=== PATIENT | female | born 1955 | race Two or more races ===

== ENCOUNTER → 2017-04-15 09:53 | Outpatient (CLI) | payer OTHER ==
[~2017-04-15 09:53] MED LIST: Neurin-Sl Tablet Sl SL; Neurontin PO; PANTOPRAZOLE SO40 MG PO; VITAMIN B COMPL1 CAP PO; ZANTAC150 MG PO; ZEBETA5 MG; ZEBETA5 MG PO; ZOLPIDEM TARTRAT5 MG PO
== END | disposition home or self-care (01) ==
LOC: LAB 09:53
DX: C50.811 Malignant neoplasm of overlapping sites of right female breast (principal); D50.8 Other iron deficiency anemias

== ENCOUNTER 2017-08-06 06:25 | Inpatient (IN) | payer OTHER ==
[~2017-08-06 06:25] MED LIST changes: +ARIMIDEX PO; +LEVO-T25 MCG PO; +[UNRECOGNIZED DRUG - OTHER] PO
== END 2017-08-07 13:10 | DRG 582 ==
LOC: CIR.AMB 06:25 → O/R 14:40 → SURG-SUITE 14:52
PROVIDERS: Surgery
PROC: 0HTU0ZZ Resection of Left Breast, Open Approach (ICD-10-PCS; principal; 2017-08-06 13:15)
DX: C50.811 Malignant neoplasm of overlapping sites of right female breast (principal); C79.89 Secondary malignant neoplasm of other specified sites

== ENCOUNTER 2017-08-31 05:50 | Day surgery (SDC) | payer OTHER | END 2017-08-31 15:15 | disposition home or self-care (01) | LOC: CIR.AMB 05:50 | DX: C50.911 Malignant neoplasm of unspecified site of right female breast (principal) | CPT/HCPCS: 36561; C1751 ==

== ENCOUNTER 2017-10-13 20:00 | Inpatient (IN) | payer OTHER ==
[~2017-10-13] VITALS: Ht 149.9 cm; Wt 44.5 kg
== END 2017-10-18 09:44 | disposition home or self-care (01) | DRG 442 ==
LOC: ER 20:00 → SEC-K 10-14 06:21 → SURH 10-14 07:54
PROC: 8E0ZXY6 Isolation (ICD-10-PCS; principal; 2017-10-14)
DX: K72.00 Acute and subacute hepatic failure without coma (principal); C78.7 Secondary malignant neoplasm of liver and intrahepatic bile duct; C79.51 Secondary malignant neoplasm of bone; D61.82 Myelophthisis; K29.00 Acute gastritis without bleeding; C50.811 Malignant neoplasm of overlapping sites of right female breast; G89.3 Neoplasm related pain (acute) (chronic); G47.01 Insomnia due to medical condition; D63.0 Anemia in neoplastic disease

== ENCOUNTER 2017-10-25 14:36 | Inpatient (IN) | payer OTHER ==
[~2017-10-25] VITALS: Ht 149.9 cm; Wt 44.5 kg
[2017-10-25] MEDS ORDERED: AROMASIN25 MG (14:58)
[2017-10-25] MEDS ORDERED: SYNTHROID125 MCG (14:58)
[2017-10-25] MEDS ORDERED: CEPHULAC (14:59)
== END 2017-10-26 23:49 | disposition expired | DRG 640 ==
LOC: ER 14:36 → SURH 18:37 → SEC-K 21:03 → SURH 10-26 05:18 → ICU-2 10-26 10:24
PROC: 30233K1 Transfusion of Nonautologous Frozen Plasma into Peripheral Vein, Percutaneous Approach (ICD-10-PCS; principal; 2017-10-26)
DX: E86.0 Dehydration (principal); K72.00 Acute and subacute hepatic failure without coma; C78.7 Secondary malignant neoplasm of liver and intrahepatic bile duct; C79.51 Secondary malignant neoplasm of bone; C78.02 Secondary malignant neoplasm of left lung; C78.01 Secondary malignant neoplasm of right lung; D61.82 Myelophthisis; C50.811 Malignant neoplasm of overlapping sites of right female breast; K29.00 Acute gastritis without bleeding; G47.09 Other insomnia; G89.3 Neoplasm related pain (acute) (chronic); D69.59 Other secondary thrombocytopenia; Z66 Do not resuscitate